=== PATIENT | male | born 1960 | race Caucasian/White ===

== ENCOUNTER 2017-02-16 18:41 | Emergency (ER) | payer OTHER ==
[~2017-02-16] VITALS: Ht 188 cm; Wt 93.8 kg
[2017-02-16 20:05] VITALS: BP 132/97
== END 2017-02-16 20:04 | disposition home or self-care (01) ==
LOC: EDBD 18:41 → EME 18:41
DX: S61.210A Laceration without foreign body of right index finger without damage to nail, initial encounter (principal); W26.8XXA Contact with other sharp object(s), not elsewhere classified, initial encounter; Y93.89 Activity, other specified
CPT/HCPCS: 99281; 99283

== ENCOUNTER 2017-02-22 17:21 | Emergency (ER) | payer OTHER ==
[~2017-02-22] VITALS: Ht 188 cm; Wt 94.3 kg
[2017-02-22 19:12] VITALS: BP 146/82
== END 2017-02-22 19:14 | disposition home or self-care (01) ==
LOC: EME 17:21
DX: S61.211D Laceration without foreign body of left index finger without damage to nail, subsequent encounter (principal); W45.8XXD Other foreign body or object entering through skin, subsequent encounter; Z48.02 Encounter for removal of sutures